=== PATIENT | female | born 1985 | race Asian ===

== ENCOUNTER 2017-01-28 00:19 | Emergency (ER) | payer OTHER ==
[2017-01-28] MEDS ORDERED: Azithromycin TAB* 250 MG PO ONE (03:52)
[2017-01-28 04:08] VITALS: BP 110/75
--- NOTE | 2017-01-28 04:13 | ED ---
Milan Silveira Aidan, scribed for Baldev Hernandezuel on 01/28/17 at 0317 . Influenza-Like Illness - HPI Summary HPI Summary: 31 y/o female presents to the ED with a complaint of an acute, constant, moderate, productive cough that has persisted for the past 2-3 days. She denies any blood in her sputum. In April, her PPD test was positive according to the patient. She has not been treated. - History of Current Complaint Chief Complaint: EDFluSymptoms Time Seen by Provider: 01/28/17 02:07 Hx Obtained From: Patient Onset/Duration: Sudden Onset, Lasting Days, Still Present Severity: Moderate Associated Signs & Symptoms: Negative Related Hx: Possible Flu/Infectious Exposure PMH/Surg Hx/FS Hx/Imm Hx Infectious Disease History: Denies: Traveled Outside the [place] in Last 30 Days - Family History Known Family History: Positive: Hypertension - Social History Occupation: Student Lives: With Family Alcohol Use: None Hx Substance Use: No Substance Use Type: Reports: None Hx Tobacco Use: No Smoking Status (MU): Never Smoked Tobacco Do You Chew or Dip Tobacco: No Have You Chewed or Dipped Tobacco in the LAST YEAR: No Have You Smoked in the Last Year: No Review of Systems Constitutional: Negative Eyes: Negative ENT: Negative Cardiovascular: Negative Positive: Cough. Negative: Shortness Of Breath Gastrointestinal: Negative Genitourinary: Negative Musculoskeletal: Negative Skin: Negative Neurological: Negative Psychological: Normal All Other Systems Reviewed And Are Negative: Yes Physical Exam Triage Information Reviewed: Yes Vital Signs On Initial Exam: Initial Vitals Temp Pulse Resp BP Pulse Ox 98.1 F 74 18 108/69 99 01/28/17 00:29 01/28/17 00:29 01/28/17 00:29 01/28/17 00:29 01/28/17 00:29 Vital Signs Reviewed: Yes Appearance: Positive: Well-Appearing, No Pain Distress Skin: Positive: Warm, Skin Color Reflects Adequate Perfusion, Dry Head/Face: Positive: Normal Head/Face Inspection Eyes: Positive: EOMI, AYAZ ENT: Positive: Normal ENT inspection Neck: Positive: Supple, Nontender Respiratory/Lung Sounds: Positive: Clear to Auscultation, Breath Sounds Present Cardiovascular: Positive: Normal, RRR, Pulses are Symmetrical in both Upper and Lower Extremities Abdomen Description: Positive: Nontender, Soft Bowel Sounds: Positive: Present Musculoskeletal: Positive: Normal, Strength/ROM Intact Neurological: Positive: Normal, Sensory/Motor Intact, Alert, Oriented to Person Place, Time Psychiatric: Positive: Normal, Affect/Mood Appropriate AVPU Assessment: Alert Diagnostics - Vital Signs Vital Signs Temp Pulse Resp BP Pulse Ox 01/28/17 01:30 70 18 110/66 100 01/28/17 00:29 98.1 F 74 18 108/69 99 - Laboratory Lab Statement: Any lab studies that have been ordered have been reviewed, and results considered in the medical decision making process. - Radiology CHEST X-RAY Xray Interpretation: No Acute Changes - IMPRESSION: negative image Radiology Interpretation Completed By: ED Physician - Dr. Hernandez Flu Symptom Course/Dx - Course Course Of Treatment: This is a 31 y/o female presenting with a productive cough. Chest x-ray was negative. She will be diagnbosed with bronchitis and questionable mycoplasma - Diagnoses Provider Diagnoses: Bronchitis, Mycoplasma infection Discharge - Discharge Plan Condition: Stable Disposition: HOME Discharge Disposition Comment: Please follow up with your primary care provider within 2 days. Prescriptions: Azithromycin TAB* [Zithromax TAB (Z-DARRICK) 250 mg #6 tabs] 250 mg PO DAILY #4 tab Benzonatate CAP* [Tessalon 100 MG CAP*] 100 mg PO TID PRN #15 cap PRN Reason: Cough Patient Education Materials: Acute Bronchitis (ED) Referrals: Paulina Zamudio, RADIOGRAPHER ANGIOGRAM [Primary Care Provider] - The documentation as recorded by the Milan rain Aidan accurately reflects the service I personally performed and the decisions made by David swann Emmanuel.
--- NOTE | 2017-01-28 08:16 | RAD ---
Indication: Cough. Single frontal view of the chest performed at 0335 hours was reviewed. Comparison is made with previous exam dated June 09, 2016. No mediastinal shift is noted. Heart is of normal size and configuration. Lung perez appear clear. IMPRESSION: NO ACTIVE CARDIOPULMONARY DISEASE IS NOTED.
== END 2017-01-28 04:07 | disposition home or self-care (01) ==
LOC: ED 00:19
DX: J40 Bronchitis, not specified as acute or chronic (principal); A49.3 Mycoplasma infection, unspecified site
CPT/HCPCS: 71010; 99282; A9270-GY